=== PATIENT | male | born 1995 | race Two or more races ===

== ENCOUNTER 2020-03-21 15:15 | Emergency (ER) | payer BC, OTHER ==
[~2020-03-21] VITALS: Ht 175.3 cm; Wt 95.3 kg
[2020-03-21] MEDS ORDERED: ACETAMINOPHEN/CODEINE#3 (300/30mg) TAB PO ONE (17:30)
[2020-03-21 17:40] VITALS: BP 156/88
== END 2020-03-21 17:59 | disposition home or self-care (01) ==
LOC: ER 15:15
DX: S43.102A Unspecified dislocation of left acromioclavicular joint, initial encounter (principal); I10 Essential (primary) hypertension; F17.210 Nicotine dependence, cigarettes, uncomplicated; F12.10 Cannabis abuse, uncomplicated; V86.56XA Driver of dirt bike or motor/cross bike injured in nontraffic accident, initial encounter; Y93.89 Activity, other specified; Y92.89 Other specified places as the place of occurrence of the external cause; Y99.8 Other external cause status
CPT/HCPCS: 73030